=== PATIENT | male | born 1955 | race Asian ===

== ENCOUNTER 2023-01-25 10:18 | Observation (INO) | payer SELFPAY ==
[2023-01-25] MEDS ORDERED: IBUPROFEN 600 MG TABLET (FP) PO ONE ×2 (10:30→10:39)
[2023-01-25] MEDS ORDERED: oxyCODONE HCL 5 MG TABLET PO PRN (16:43)
[2023-01-25] MEDS ORDERED: IBUPROFEN 600 MG TABLET (FP) PO PRN (16:43)
[2023-01-25] MEDS ORDERED: DOCUSATE SODIUM 100 MG CAPSULE (FP) PO PRN (16:43)
[2023-01-25 17:10] LABS: INR 1.05 (0.83-1.09); PROTHROMBIN TIME (PATIENT) 12.2 SEC (9.7-13.0)
[2023-01-25 17:13] LABS: ACTIVATED PTT 25.8 SECONDS (25.2-36.5)
[2023-01-25 17:21] LABS: ALBUMIN 4.1 g/dl (3.4-5.0); CALCIUM 8.6 mg/dl (8.5-10.1); CREATININE 0.8 mg/dl (0.6-1.3); POTASSIUM 3.7 mmol/L (3.5-5.1); SGOT/AST 25.5 U/L (15-37); SGPT/ALT 25.4 U/L (7-52); TOT PROT 6.9 g/dl (6.4-8.2)
[2023-01-25 17:33] LABS: HEMATOCRIT 43.3 % (35.4-49); HEMOGLOBIN 14.7 G/dL (11.7-16.9); MCH 31.2 pg (25.7-33.7); MCHC 33.8 g/dl (32.0-35.9); MEAN CELL VOLUME 92.2 fl (80-96); MEAN PLT VOLUME 8.7 fl (7.5-11.1); RDW 13.2 % (11.9-15.9); WHITE BLOOD COUNT 9.6 10^3/uL (4.0-10.8)
[2023-01-25 17:37] LABS: PLATELET ESTIMATE ADEQUATE
[2023-01-25 18:00] VITALS: BMI 24.6
[2023-01-25 18:31] LABS: BILIRUBIN,TOTAL 0.8 mg/dL (0.2-1)
[2023-01-25 23:38] VITALS: RESP 18
[2023-01-26 08:53] LABS: HEMATOCRIT 40.2 % (35.4-49); HEMOGLOBIN 13.5 G/dL (11.7-16.9); MCHC 33.6 g/dl (32.0-35.9); MEAN CELL VOLUME 92.2 fl (80-96); MEAN PLT VOLUME 8.4 fl (7.5-11.1); PLATELET COUNT 144.1 10^3/uL (134-434); RBC 4.36 10^6/uL (4.00-5.60); RDW 13.2 % (11.9-15.9); WHITE BLOOD COUNT 8.3 10^3/uL (4.0-10.8)
[2023-01-26] MEDS ORDERED: ACETAMINOPHEN 325 MG TABLET (FP) PO PRN (11:22)
[2023-01-26] MEDS ORDERED: ASPIRIN 81 MG CHEWABLE TABLETS PO SCH (13:00)
[2023-01-26 14:50] VITALS: BP 130/54; PULSE 58; TEMP 98.1
== END 2023-01-26 19:07 | disposition home or self-care (01) ==
LOC: FER 10:18 → FM/S 16:14
PROVIDERS: ADMIT Internal Medicine; ATTEND Internal Medicine
DX: S82.142A Displaced bicondylar fracture of left tibia, initial encounter for closed fracture (principal); W18.39XA Other fall on same level, initial encounter; Y93.89 Activity, other specified; Y92.481 Parking lot as the place of occurrence of the external cause; Y99.0 Civilian activity done for income or pay
CPT/HCPCS: 36415; 73562-TC-LT-FY; 73700-TC-RT; 80053; 85027; 85610; 85730; 97116-GP; 97162-GP; 99285-25; G0378

== ENCOUNTER 2023-01-29 18:47 | Emergency (ER) | payer OTHER ==
[2023-01-29 19:09] VITALS: BP 150/86; PULSE 65; RESP 18; TEMP 99.1; BMI 24.3
== END 2023-01-29 20:52 | disposition home or self-care (01) ==
LOC: FER 18:47 → SUPCPDRO 18:47 → FER 20:52
DX: M79.605 Pain in left leg (principal); S90.822A Blister (nonthermal), left foot, initial encounter; X58.XXXA Exposure to other specified factors, initial encounter
CPT/HCPCS: 93971-TC; 99284-25